=== PATIENT | male | born 1975 | race African-American/Black ===

== ENCOUNTER 2016-08-07 05:32 | Emergency (ER) | payer SELFPAY ==
[~2016-08-07] VITALS: Ht 180.3 cm; Wt 134.2 kg
[~2016-08-07 05:32] MED LIST: ALBUTEROL SULF8.5 GM IH; AZITHROMYCIN250 MG PO; FLEXERIL10 MG PO; NAPROSYN500 MG PO; PREDNISONE20 MG PO; ROBITUSSIN AC,T10 ML PO; TRAMADOL HCL50 MG PO; ZOFRAN4 MG PO
[2016-08-07 07:41] LABS: EOSINOPHIL (%) 1.3 % (0-5); EOSINOPHIL COUNT 0.1 K/uL (0-0.3); HEMATOCRIT 41.8 % (38.0-50.0); IMMATURE GRANULOCYTE (%) 0.5 % (0.0-0.7); INSTRUMENT ABS NEUTROPHIL CT 3.5 K/uL; LYMPHOCYTE COUNT 1.8 K/uL (1.0-2.8); MCHC 33.5 G/DL (30.0-36.0); MCV 86.7 FL (86-99); MEAN PLAT.VOLUME 10.2 uM^3 (9.0-12.4); MONOCYTE (%) 9.9 % (3-12); MONOCYTE COUNT 0.6 K/uL (0-0.8); NEUTROPHIL (%) 58.2 % (45-76); NEUTROPHIL COUNT 3.5 K/uL (1.8-6.4); PLATELET COUNT 252 K/uL (156-360); RBC DIS.WIDTH-CV 13.1 % (11.8-14.6); RBC DIS.WIDTH-SD 41.3 % (39-53); RED BLOOD COUNT 4.82 M/uL (4.00-5.50)
[2016-08-07 07:50] LABS: CHLORIDE 106 mEq/L (99-109); POTASSIUM 3.4 mEq/L (3.7-5.4); SODIUM 139 mEq/L (136-147)
[2016-08-07 07:52] LABS: GLUCOSE 92 mg/dL (70-99)
[2016-08-07 07:54] LABS: ANION GAP 8 MEQ/L (2-14); TOTAL BILIRUBIN 0.6 mg/dL (0.0-1.0)
[2016-08-07 07:56] LABS: ALKALINE PHOSPHATASE 78 IU/L (3-129); GFR ESTIMATE (CALCULATED) > 59 mL/min/
[2016-08-07 07:57] LABS: UREA NITROGEN (BUN) 9 mg/dL (9-23)
[2016-08-07 07:59] LABS: LIPASE 12 U/L (1.0-51.0)
[2016-08-07 10:30] LABS: ADD MIUA? NO; BILIRUBIN NEGATIVE; BLOOD NEGATIVE; COLOR YELLOW ((YELLOW)); GLUCOSE (STRIP) NEGATIVE; KETONES NEGATIVE; LEUKOCYTES NEGATIVE; NITRITE NEGATIVE; PROTEIN (STRIP) NEGATIVE; UROBILINOGEN 0.2 MG/DL (0.2-1.0)
[2016-08-07] MEDS ORDERED: MOTRIN800 MG PO (11:33)
[2016-08-07 11:40] VITALS: BP 131/88
== END 2016-08-07 11:49 | disposition home or self-care (01) ==
LOC: EME 05:32
PROVIDERS: Emergency Medicine
DX: R10.9 Unspecified abdominal pain (principal); B34.9 Viral infection, unspecified; R05 Cough; F17.200 Nicotine dependence, unspecified, uncomplicated
CPT/HCPCS: 71020; 74176; 80053; 81003; 83605; 83690; 85025; 93005; 99281; 99284; J1885; J7030